=== PATIENT | female | born 1995 | race Caucasian/White ===

== ENCOUNTER 2017-08-23 01:33 | Emergency (ER) | payer SELFPAY ==
[2017-08-23 01:39] VITALS: BP 136/92
[2017-08-23 02:40] LABS: Basophils % (Auto) 0.3 % (0.0-1.8); Eosinophils % (Auto) 4.4 % (0.0-4.3); Hematocrit 39.3 % (30.3-42.9); Hemoglobin 12.9 gm/dl (10.1-14.3); Mean Corpuscular HGB Conc 33 % (30-34); Mean Corpuscular Hemoglobin 26 pg (28-32); Mean Corpuscular Volume 78 fl (79-97); Platelet Count 371 K/mm3 (140-440); Red Blood Count 5.05 M/mm3 (3.65-5.03); White Blood Count 10.7 K/mm3 (4.5-11.0)
[2017-08-23 02:44] LABS: Alanine Aminotransferase 7 units/L (7-56); Albumin 4.1 g/dL (3.9-5); Albumin/Globulin Ratio 1.2 %; Alkaline Phosphatase 55 units/L (35-129); Anion Gap 16 mmol/L; Blood Urea Nitrogen 12 mg/dL (7-17); Carbon Dioxide 28 mmol/L (22-30); Chloride 99.5 mmol/L (98-107); Glucose 107 mg/dL (65-100); Lipase 19 units/L (13-60); Potassium 4.2 mmol/L (3.6-5.0); Sodium 139 mmol/L (137-145); Total Protein 7.5 g/dL (6.3-8.2)
[2017-08-23 03:39] LABS: Bacteria,Urine 1+ /HPF (Negative); Bilirubin,Urine NEG (Negative); Blood,Urine SM (Negative); Ketones,Urine TR mg/dL (Negative); Leukocyte Esterase,Urine TR (Negative); Mucus,Urine 3+ /HPF; Nitrite,Urine NEG (Negative); Urobilinogen,Urine < 2.0 mg/dL (<2.0)
== END 2017-08-23 04:15 | disposition left against medical advice (07) ==
LOC: ED 01:33
DX: N93.9 Abnormal uterine and vaginal bleeding, unspecified (principal); R10.9 Unspecified abdominal pain; Z53.21 Procedure and treatment not carried out due to patient leaving prior to being seen by health care provider
CPT/HCPCS: 36415; 80053; 81001; 83690; 84703; 85025

== ENCOUNTER 2017-12-16 17:58 | Emergency (ER) | payer SELFPAY ==
--- NOTE | 2017-12-16 20:48 | Emergency Department Report ---
ED Female HPI - General Chief complaint: Vaginal Bleeding Stated complaint: VAGINAL BLEEDING Time Seen by Provider: 12/16/17 20:47 Source: patient Mode of arrival: Ambulatory Limitations: No Limitations - History of Present Illness MD Complaint: vaginal bleeding - Related Data Previous Rx's Medication Instructions Recorded Last Taken Type Hydrocortisone 0.5% 1 applicatio TP TID #1 tube 12/16/17 Unknown Rx [Hydrocortisone 0.5% CREAM] Nitrofurantoin Monohyd/M-Cryst 100 mg PO BID #14 capsule 12/16/17 Unknown Rx [Macrobid 100 mg Capsule] Allergies Allergy/AdvReac Type Severity Reaction Status Date / Time No Known Allergies Allergy Verified 12/16/17 18:04 ED Review of Systems ROS: Stated complaint: VAGINAL BLEEDING Other details as noted in HPI ED Past Medical Hx - Past Medical History Previous Medical History?: No - Surgical History Past Surgical History?: No - Social History Smoking Status: Never Smoker Substance Use Type: Alcohol - Medications Home Medications: Home Medications Medication Instructions Recorded Confirmed Last Taken Type Hydrocortisone 0.5% 1 applicatio TP TID #1 tube 12/16/17 Unknown Rx [Hydrocortisone 0.5% CREAM] Nitrofurantoin Monohyd/M-Cryst 100 mg PO BID #14 capsule 12/16/17 Unknown Rx [Macrobid 100 mg Capsule] ED Physical Exam - General Limitations: No Limitations ED Course Vital Signs 12/16/17 18:04 Temperature 98.5 F Pulse Rate 79 Respiratory 20 Rate Blood Pressure 135/91 O2 Sat by Pulse 100 Oximetry Critical care attestation.: If time is entered above; I have spent that time in minutes in the direct care of this critically ill patient, excluding procedure time. ED Disposition Clinical Impression: Vaginal discharge, Asymptomatic bacteriuria Disposition: DC-01 TO HOME OR SELFCARE Is pt being admited?: No Does the pt Need Aspirin: No Condition: Stable Instructions: Vaginitis (ED), Dysuria (ED), Urinary Tract Infection in Women ( ED) Prescriptions: Hydrocortisone 0.5% [Hydrocortisone 0.5% CREAM] 1 applicatio TP TID #1 tube Nitrofurantoin Monohyd/M-Cryst [Macrobid 100 mg Capsule] 100 mg PO BID #14 capsule Referrals: [facility] [Provider Group] - 3-5 Days Time of Disposition: 23:16
[2017-12-16 21:46] LABS: Bilirubin,Urine NEG (Negative); Blood,Urine NEG (Negative); Color,Urine Yellow (Yellow); Mucus,Urine 2+ /HPF; Nitrite,Urine NEG (Negative); Renal Epithelial Cells,Urine 14 /LPF
[2017-12-16 21:54] LABS: HCG Qualitative,Urine Negative (Negative)
[2017-12-16 23:57] VITALS: BP 120/83
== END 2017-12-16 23:26 | disposition home or self-care (01) ==
LOC: ED 17:58
DX: N93.9 Abnormal uterine and vaginal bleeding, unspecified (principal); R82.71 Bacteriuria
CPT/HCPCS: 81001; 81025; 87086; 87210; 87591; 99283

== ENCOUNTER 2021-01-21 12:07 | Emergency (ER) | payer OTHER ==
[2021-01-21 12:34] VITALS: BP 122/79
--- NOTE | 2021-01-21 12:57 | Emergency Department Report ---
- General Chief complaint: Extremity Injury, Upper Stated complaint: CYST ON FINGER/RT ARM PAIN Time Seen by Provider: 01/21/21 12:53 Source: patient Mode of arrival: Ambulatory Limitations: No Limitations - History of Present Illness Initial comments: pt is a 25 yo female who presents to the ED with c/o a possible infection to her right middle finger that occurred 2 days ago. she states that she got her nails done at a nail salon 6 days ago and currently has on false nails. she states she began having small amount of swelling and pain to the finger. she states this occurred to her once in the past 10 years ago. she denies any fever, drainage, chills, n/v/d. no pmhx. no allergies to meds. lnmp end of last month. - Related Data Previous Rx's Medication Instructions Recorded Last Taken Type Hydrocortisone 0.5% 1 applicatio TP TID #1 tube 12/16/17 Unknown Rx [Hydrocortisone 0.5% CREAM] Nitrofurantoin Monohyd/M-Cryst 100 mg PO BID #14 capsule 12/16/17 Unknown Rx [Macrobid 100 mg Capsule] Acetaminophen [Tylenol] 650 mg PO Q8HR PRN #20 capsule 01/21/21 Unknown Rx Neomycin/Bacitracin/Polymyxinb 1 applicatio TP BID #14 oint...g. 01/21/21 Unknown Rx [Triple Antibiotic Ointment] cephALEXin [Keflex] 500 mg PO QID 7 Days #28 cap 01/21/21 Unknown Rx Allergies Allergy/AdvReac Type Severity Reaction Status Date / Time No Known Allergies Allergy Verified 01/21/21 12:31 Abscess Boil HPI - HPI Chief Complaint: Extremity Injury, Upper Stated Complaint: CYST ON FINGER/RT ARM PAIN Time Seen by Provider: 01/21/21 12:53 Home Medications: Previous Rx's Medication Instructions Recorded Last Taken Type Hydrocortisone 0.5% 1 applicatio TP TID #1 tube 12/16/17 Unknown Rx [Hydrocortisone 0.5% CREAM] Nitrofurantoin Monohyd/M-Cryst 100 mg PO BID #14 capsule 12/16/17 Unknown Rx [Macrobid 100 mg Capsule] Acetaminophen [Tylenol] 650 mg PO Q8HR PRN #20 capsule 01/21/21 Unknown Rx Neomycin/Bacitracin/Polymyxinb 1 applicatio TP BID #14 oint...g. 01/21/21 Unknown Rx [Triple Antibiotic Ointment] cephALEXin [Keflex] 500 mg PO QID 7 Days #28 cap 01/21/21 Unknown Rx Allergies/Adverse Reactions: Allergies Allergy/AdvReac Type Severity Reaction Status Date / Time No Known Allergies Allergy Verified 01/21/21 12:31 ED Review of Systems ROS: Stated complaint: CYST ON FINGER/RT ARM PAIN Other details as noted in HPI Comment: All other systems reviewed and negative ED Past Medical Hx - Past Medical History Previous Medical History?: No - Surgical History Past Surgical History?: No - Social History Smoking Status: Never Smoker Substance Use Type: Alcohol - Medications Home Medications: Home Medications Medication Instructions Recorded Confirmed Last Taken Type Hydrocortisone 0.5% 1 applicatio TP TID #1 tube 12/16/17 Unknown Rx [Hydrocortisone 0.5% CREAM] Nitrofurantoin Monohyd/M-Cryst 100 mg PO BID #14 capsule 12/16/17 Unknown Rx [Macrobid 100 mg Capsule] Acetaminophen [Tylenol] 650 mg PO Q8HR PRN #20 capsule 01/21/21 Unknown Rx Neomycin/Bacitracin/Polymyxinb 1 applicatio TP BID #14 oint...g. 01/21/21 Unknown Rx [Triple Antibiotic Ointment] cephALEXin [Keflex] 500 mg PO QID 7 Days #28 cap 01/21/21 Unknown Rx ED Physical Exam - General Limitations: No Limitations General appearance: alert, in no apparent distress - Head Head exam: Present: atraumatic, normocephalic - Eye Eye exam: Present: normal appearance - ENT ENT exam: Present: mucous membranes moist - Respiratory Respiratory exam: Absent: respiratory distress, accessory muscle use - Neurological Exam Neurological exam: Present: alert, oriented X3 - Psychiatric Psychiatric exam: Present: normal affect, normal mood - Skin Skin exam: Present: warm, dry, other (0.5 cm area of edema present to the right lateral middle finger nail bed, no fluctuance, no drainage, no necrosis, FROM of the right wrist, hand, and digits, neurovascularly intact, it is localized to the region of the nailbed) ED Course Vital Signs 01/21/21 12:31 Temperature 98.4 F Pulse Rate 83 Respiratory 18 Rate Blood Pressure 122/79 O2 Sat by Pulse 96 Oximetry ED Medical Decision Making - Medical Decision Making pt is a 25 yo female who presents to the ED with c/o a possible infection to her right middle finger that occurred 2 days ago. she states that she got her nails done at a nail salon 6 days ago and currently has on false nails. she states she began having small amount of swelling and pain to the finger. she states this occurred to her once in the past 10 years ago. she denies any fever, drainage, chills, n/v/d. no pmhx. no allergies to meds. lnmp end of last month. Vitals are normal. On exam:0.5 cm area of edema present to the right lateral middle finger nail bed, no fluctuance, no drainage, no necrosis, FROM of the right wrist, hand, and digits, neurovascularly intact, it is localized to the region of the nailbed. Examination appears consistent with very early paronychia, there is no drainable abscess at this time. Patient will be given a trial of outpatient oral antibiotics, advised patient that if it worsened she may need to have an incision and drainage in the future, discussed the importance of having the area reexamined within the next 2 to 3 days, discussed very strict return precautions with patient, she verbalized understanding. Patient for Keflex, triple antibiotic ointment, Tylenol. Advised patient please use medication as prescribed. soak in epsom salt. use warm compresses. follow up with a primary care doctor for reexamination. return to the emergency room fo r any new or worsening symptoms as discussed. Critical care attestation.: If time is entered above; I have spent that time in minutes in the direct care of this critically ill patient, excluding procedure time. ED Disposition Clinical Impression: Paronychia Disposition: DC-01 TO HOME OR SELFCARE Is pt being admited?: No Does the pt Need Aspirin: No Condition: Stable Instructions: Paronychia Additional Instructions: please use medication as prescribed. soak in epsom salt. use warm compresses. follow up with a primary care doctor for reexamination. return to the emergency room for any new or worsening symptoms as discussed. Prescriptions: cephALEXin [Keflex] 500 mg PO QID 7 Days #28 cap Neomycin/Bacitracin/Polymyxinb [Triple Antibiotic Ointment] 1 applicatio TP BID #14 oint...g. Acetaminophen [Tylenol] 650 mg PO Q8HR PRN #20 capsule PRN Reason: pain Referrals: DYLON KINSEY MD [Staff Physician] - 3-5 Days [facility] [Provider Group] - 3-5 Days [facility], [LAB[facility]CONTRACT] - 3-5 Days Time of Disposition: 12:57 Print Language: [place]
== END 2021-01-21 13:55 | disposition home or self-care (01) ==
LOC: ED 12:07
DX: L03.012 Cellulitis of left finger (principal); Z79.899 Other long term (current) drug therapy
CPT/HCPCS: 99282